=== PATIENT | male | born 1990 | race Caucasian/White ===

== ENCOUNTER 2020-10-02 00:59 | Emergency (ER) | payer SELFPAY ==
[2020-10-02] MEDS ORDERED: Morphine 10 MG/ML Syringe IM ONE (01:12)
[2020-10-02] MEDS ORDERED: Ondansetron 4 MG Tab.DIS PO ONE (01:13)
[2020-10-02] MEDS ORDERED: Diphtheria,Pertussis(Acell),Tetanus Vaccine 0.5 ML Syringe IM ONE (01:13)
--- NOTE | 2020-10-02 02:29 | CR ---
INDICATION: Ankle pain, fall TECHNIQUE: Ankle radiograph 3 views left COMPARISON: None FINDINGS: Bone: There is a minimally displaced comminuted, oblique fracture of the distal fibular diaphysis. A mildly displaced posterior tibial malleolar fracture seen. Joint: The ankle mortise joint and the visualized hindfoot joints are unremarkable in appearance. No significant ankle effusion is seen. Soft tissue: Severe medial ankle swelling is noted. No radiopaque foreign bodies are seen. IMPRESSIONS: 1. There is a minimally displaced comminuted, oblique fracture of the distal fibular diaphysis. 2. A mildly displaced posterior tibial malleolar fracture seen. Dictated by Nam Hernandez MD @ 10/02/2020 2:27:32 AM Dictated by: Nam Hernandez MD @ 10/02/2020 02:27:36 (Electronically Signed)
--- NOTE | 2020-10-02 02:29 | CR ---
INDICATION: Foot pain, fall TECHNIQUE: Foot radiograph 3 views left COMPARISON: None FINDINGS: Bone: No acute fractures or aggressive bone lesions are identified. Fibular and tibial fractures are discussed on ankle report. Joint: The visualized hindfoot, midfoot, and forefoot joints are unremarkable in appearance. No significant ankle effusion is seen. Soft tissue: Unremarkable. No radiopaque foreign bodies are seen. IMPRESSION: 1. No acute osseous injuries or abnormalities are noted in the foot. Dictated by: Nam Hernandez MD @ 10/02/2020 02:28:30 (Electronically Signed)
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
== END 2020-10-02 03:25 | disposition home or self-care (01) ==
LOC: MW.ED 00:59
DX: S82.432A Displaced oblique fracture of shaft of left fibula, initial encounter for closed fracture (principal); S82.52XA Displaced fracture of medial malleolus of left tibia, initial encounter for closed fracture; S50.312A Abrasion of left elbow, initial encounter; X50.1XXA Overexertion from prolonged static or awkward postures, initial encounter
CPT/HCPCS: 29515; 73610; 73630; 96372; 99283; A9270; J2270